=== PATIENT | male | born 1975 | race Two or more races ===

== ENCOUNTER 2016-12-18 16:47 | Emergency (ER) | payer MEDICAID ==
[~2016-12-18] VITALS: Ht 185.4 cm; Wt 92.5 kg
[2016-12-18] MEDS ORDERED: cloNIDine HCL 0.1 MG TAB ONE (20:02)
[2016-12-18] MEDS ORDERED: cloNIDine HCL 0.1 MG TAB PO ONE (20:15)
[2016-12-18 20:55] VITALS: BP 179/117
== END 2016-12-18 21:48 | disposition home or self-care (01) ==
LOC: ER 17:13
DX: R03.0 Elevated blood-pressure reading, without diagnosis of hypertension (principal)

== ENCOUNTER 2017-06-01 14:23 | Emergency (ER) | payer MEDICAID ==
[~2017-06-01] VITALS: Ht 185.4 cm; Wt 88.0 kg
[2017-06-01 15:19] LABS: Basophils # (auto) 0 uL; Basophils % (auto) 0.2 % (0.0-2.0); Eosinophils # (auto) 0 uL; Eosinophils % (auto) 0.2 % (0.0-7.0); Hematocrit 45.4 % (41.0-53.0); Lymphocytes # (auto) 1.2 uL; Lymphocytes % (auto) 14.9 % (10.0-50.0); Mean Corpuscular Hemoglobin 28.6 pg (28.0-32.0); Mean Corpuscular Hgb Conc. 33.1 g/dL (32.0-36.0); Mean Corpuscular Volume 86.3 fL (80.0-100.0); Monocytes # (auto) 0.4 uL; Monocytes % (auto) 5.7 % (0.0-12.0); Neutrophils # (auto) 6.2 uL; Nucleated Red Blood Cells % 0.1 %; Platelet Count (auto) 325 10^3/uL (140-450); Red Blood Cells 5.26 10^6/uL (4.5-5.90); Red Cell Distribution Width 14.7 % (11.8-14.3); White Blood Cell 7.8 10^3/uL (4.4-10.8)
[2017-06-01 15:39] LABS: Albumin 4.2 g/dL (3.4-5.0); BUN/Creatinine Ratio 17.1; Calcium 9.5 mg/dL (8.5-10.1); Potassium 3.7 mmol/L (3.5-5.1)
[2017-06-01 15:41] LABS: Bilirubin, Total 0.5 mg/dL (0.2-1.0); Total Protein 8.1 g/dL (6.4-8.2)
[2017-06-01 16:00] LABS: Urine Bacteria NONE SEEN /hpf (None Seen); Urine Blood Negative /uL (Negative); Urine Mucus FEW (None Seen); Urine Specific Gravity 1.026 (1.001-1.035); Urine WBC 1 /hpf (0 - 3)
[2017-06-01 17:33] VITALS: BP 149/96
== END 2017-06-01 18:44 | disposition home or self-care (01) ==
LOC: ER 14:23
DX: R33.9 Retention of urine, unspecified (principal); K59.00 Constipation, unspecified; I10 Essential (primary) hypertension
CPT/HCPCS: 36415; 51702; 74176; 80053; 81001; 83690; 85025

== ENCOUNTER 2017-06-07 17:14 | Emergency (ER) | payer MEDICAID ==
[2017-06-07 17:28] VITALS: BP 133/90
== END 2017-06-07 18:30 | disposition left against medical advice (07) ==
LOC: ER 17:20
DX: R33.9 Retention of urine, unspecified (principal); Z53.21 Procedure and treatment not carried out due to patient leaving prior to being seen by health care provider